=== PATIENT | male | born 1950 | race Caucasian/White ===

== ENCOUNTER 2021-10-06 08:32 | Outpatient (CLI) | payer MEDICARE, BC, SELFPAY ==
[2021-10-06 14:12] LABS: Chloride* 105 mmol/L (96-114)
[2021-10-06 14:13] LABS: Potassium* 4.6 mmol/L (3.6-5.1); Sodium* 137 mmol/L (135-149)
[2021-10-06 14:15] LABS: Carbon Dioxide* 23 mmol/L (20-32); Cholesterol* 154 mg/dL (90-199); Creatinine* 0.8 mg/dL (0.5-1.5); Estimated Glomerular Filt Rate 95 ml/min
[2021-10-06 14:16] LABS: Blood Urea Nitrogen* 20 mg/dL (7-30); Calcium* 10.3 mg/dL (8.4-10.6); Glucose* 92 mg/dL (60-115); HDL Cholesterol* 48 mg/dL (>=40); LDL Cholesterol Calculated 79 mg/dL (<100); Triglycerides* 136 mg/dL (40-149)
== END 2021-10-06 08:33 | disposition home or self-care (01) ==
PROVIDERS: PCP Family Medicine; Visit Provider Family Medicine
DX: Z00.00 Encounter for general adult medical examination without abnormal findings (principal); I10 Essential (primary) hypertension; E78.5 Hyperlipidemia, unspecified; Z13.0 Encounter for screening for diseases of the blood and blood-forming organs and certain disorders involving the immune mechanism
CPT/HCPCS: 80048; 80061

== ENCOUNTER 2022-11-14 09:53 | Outpatient (CLI) | payer MEDICARE, BC, SELFPAY | END 2022-11-14 09:54 | disposition home or self-care (01) | PROVIDERS: PCP Family Medicine; Visit Provider Family Medicine | DX: Z00.00 Encounter for general adult medical examination without abnormal findings (principal); I10 Essential (primary) hypertension; E78.5 Hyperlipidemia, unspecified | CPT/HCPCS: 80053; 80061 ==

== ENCOUNTER 2023-09-14 12:23 | Outpatient (CLI) | payer BC, MEDICARE, SELFPAY | END 2023-09-14 12:24 | disposition home or self-care (01) | LOC: CT 12:26 | PROVIDERS: Visit Provider Orthopaedic Surgery Sports Medicine | DX: M19.011 Primary osteoarthritis, right shoulder (principal); M75.121 Complete rotator cuff tear or rupture of right shoulder, not specified as traumatic | CPT/HCPCS: 73200 ==

== ENCOUNTER 2023-10-19 09:09 | Day surgery (SDC) | payer BC, MEDICARE, SELFPAY ==
[2023-10-19] VITALS (22 sets, daily range): BP systolic 109–146; BP diastolic 62–79; PULSE 70–103; RESP 14–18; TEMP 35.9–36.4; O2SAT 93–99; BMI 34.9
[2023-10-19] MEDS: ACETAMINOPHEN 500 MG TABLET 1000 MG PO ×3 (10:03→23:20)
[2023-10-19] MEDS: CELECOXIB 200 MG CAPSULE PO (10:03)
[2023-10-19] MEDS: SODIUM CHLORIDE 0.9 % (FLUSH) 10 ML SYRINGE IVF (10:04)
[2023-10-19] MEDS: LACTATED RINGERS 1000 ML 1,000 ML 100 ML IV ×2 (10:04→14:18)
[2023-10-19] MEDS: OXYCODONE (CR) 10 MG TAB.ER.12H PO (10:04)
[2023-10-19] MEDS: MIDAZOLAM HCL 1 MG/ML inj IVP (11:30)
[2023-10-19] MEDS: fentaNYL 100 MCG/2 ML inj IVP (11:30)
--- NOTE | 2023-10-19 11:35 | P.NB_ITS ---
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 Images saved: Yes Medications given in 5ml increments after negative aspiration: Ropivicaine %: 0.5 mL: 20 Needle gauge: 22 Decadron (mg): 10 Precedex (mcg): 25 Patient tolerated procedure well: Yes Block Charges Block Charge (with Pro Fee): Brachial Plexus Use of Ultrasound Machine for Block: Yes- US Guidance/pain block
--- NOTE | 2023-10-19 11:35 | SUR.PREOP ---
TIME?OUT:?1130 PT/RN/MDA?VERIFICATION?OF?SURGICAL?SITE Right Shoulder,?PROCEDURE Nerve Block,?AND?CONSENT OBTAINED?PRIOR?TO?INVASIVE?PROCEDURE.
--- NOTE | 2023-10-19 11:36 | W.ANESCHARGE ---
Anesthesia Charges Start Date/Time Anesthesia Start Date: 10/19/23 Anesthesia Start Time: 12:12 Stop Date/Time Anesthesia Stop Date: 10/19/23 Anesthesia Stop Time: 15:13 Summary Extremes of Age - Over 70 or under 1: MDA
--- NOTE | 2023-10-19 14:25 | CRLHL7_ITS ---
For Patients: As a result of the Cures Act, medical imaging exams and procedure reports are released immediately into your electronic medical record. You may view this report before your referring provider. If you have questions, please contact your health care provider. Indication: Postop Technique: Two views right shoulder Findings/Impression: Hardware from a right reverse total shoulder arthroplasty is in satisfactory position. Bone alignment is normal. No sign of acute fracture. Postop changes are within normal limits. Dictated by Flip Carrero MD @ 10/20/2023 2:41:58 PM (Electronically Signed)
--- NOTE | 2023-10-19 14:35 | PM.ORPRC ---
Procedure Note Date of procedure: 10/19/23 Procedure: PREOPERATIVE DIAGNOSIS: Right shoulder rotator cuff tear arthropathy POSTOPERATIVE DIAGNOSIS: Right shoulder rotator cuff tear arthropathy NAME OF OPERATION: Right upper extremity reverse shoulder arthroplasty, biceps tenodesis SURGEON: Ruddy Jeffery MD CONTROL OFFICER MANAGER: Stanley Ordoñez PA-C, KAPIL Dobbs ANESTHESIA: General endotracheal ESTIMATED BLOOD LOSS: 100 mL COMPLICATIONS: None SPECIMENS: None DRAINS: None PREOPERATIVE ANTIBIOTICS: Ancef 2 grams IMPLANTS: 1. Tornier 29 mm x 40 mm baseplate 2. 39 mm standard glenosphere 3. 7B humeral stem 4. High eccentric +0 humeral tray 5. 39 mm +6 polyethylene INDICATIONS: The patient is a 73-year-old with a longstanding history of severe, unrelenting right shoulder pain secondary to rotator cuff tear arthropathy. Despite appropriate nonoperative management, including activity modification, anti-inflammatories, [id number] pain medication, physical therapy, and injections they continue to have pain and disability. Operative intervention was offered. The risks, benefits and expected outcomes were discussed in detail. These included but were not limited to: Infection, bleeding, injury to blood vessel or nerve, venous thromboembolism. All questions were answered to their satisfaction. Use of an assistant sales director was necessary throughout the case for patient positioning and safety, soft tissue retraction, and closure. PROCEDURE: General anesthesia was administered. The patient was placed in the lazy beach chair position on the operating room table. The right upper extremity was prepped and draped in the usual sterile fashion. A standard deltopectoral incision was made. Subcutaneous dissection was taken with electrocautery to the deltopectoral interval. The cephalic vein was mobilized, lateral branches were cauterized. The vein was taken medially with the pectoralis. We bluntly entered the deltopectoral interval. We freed up the deltoid. The upper 1/3 of the insertion of the pectoralis was divided with cautery. The static retractor was placed. The clavipectoral fascia and CA ligament were divided. The cephalic vein was ligated. The circumflex vessels were controlled with electrocautery. The biceps was dissected out of the bicipital groove, was tagged with a #2 FiberWire suture and divided proximally. Two fiberWire sutures were placed in the subscapularis. The subscap was subperiosteally elevated off of the lesser tuberosity. The humeral head was delivered into the wound. The intramedullary humeral cutting guide was placed. We made the cut at the anatomic neck, in 30? of retroversion. Humeral sounds were used to assess the diameter of the canal. The broach was placed and had good rotational stability. The calcar reamer was used and the protective base plate cover was placed. Attention was then turned to the glenoid. Hohmann retractors were placed posteriorly. The labrum and biceps stump were sharply debrided. The origin of the inferior glenohumeral ligaments were subperiosteally released off of the glenoid. The drill guide was placed. The guide pin was placed in 0? of cephalic tilt. The reamer was used to bleeding bone. The central drill was used x2. The tap was used. The standard base plate was placed. This had excellent purchase. Locking screws x 2 were placed. The glenosphere was placed, the set screw was tightened. Attention then returned to the humerus. We placed a high eccentric standard base plate and standard poly. We reduced the shoulder and took it through a range of motion. It was found to be stable with appropriate soft tissue tension. Trial humeral components were removed. The biceps was tenodesed in the bicipital groove with drill holes and our previously placed FiberWire suture. We placed #2 FiberWire sutures in the lesser tuberosity for subsequent subscap repair. We assembled the humeral component on the back table. We placed it in the center of our subscapularis repair sutures and tapped it down to our humeral cut. This had excellent purchase. The shoulder was reduced and again was found to be stable with appropriate soft tissue tension. We did a 3 min dilute Betadine solution soak. We irrigated the wound with 3 L of normal saline via pulse lavage. We repaired the subscapularis to the lesser tuberosity with our previously placed FiberWire sutures. The deltopectoral interval was loosely reapproximated with an 0 Vicryl in an interrupted [id number] fashion. Subcutaneous tissues were closed with the 2-0 Vicryl and a running 3-0 Monocryl suture. The skin was sealed with glue. A dry dressing and sling were applied. Sponge and needle counts were correct x2. The patient tolerated the procedure well, there were no apparent complications. They were awakened and extubated in the operating room, taken to the postanesthesia care unit in satisfactory condition. PLAN: The patient will be mobilized with physical therapy. The sling will be used for 6 weeks postoperatively. Active range of motion in forward flexion and abduction as tolerates. No external rotation greater than 0? for 6 weeks postoperatively. They will be discharged to home once medically appropriate.
--- NOTE | 2023-10-19 15:18 | P.ANES_ITS ---
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
--- NOTE | 2023-10-19 15:29 | P.IMCN_ITS ---
Date of Consult Patient: [facility] Patient Consult date: 10/19/23 Requesting Physician: Orthopedics Primary Care Provider: David Ugalde MD Consult Narrative Reason for consult: Medical management Narrative: David Hawkins is a 73 year old male past medical history significant for osteoarthritis right shoulder, hypertension, hyperlipidemia, cholangiocarcinoma status post surgical resection and completion of adjuvant chemotherapy, is POD#0 s/p Right upper extremity reverse shoulder arthroplasty, biceps tenodesis, Dr. Jeffery. Postoperatively, patient reports pain is well managed. Denies headache or dizziness. No nausea. Tolerating orals without vomiting. There have been no perioperative complications or nursing concerns reported. Estimated total blood loss documented as 100 ml. Updated and reviewed the active medical problems, past medical history, past surgical history, social history, allergies and medications in our electronic EMR. Review of Systems Narrative: REVIEW OF SYSTEMS: Complete review of systems performed and negative unless otherwise stated in HPI or below. PFSH PFSH Medical History (Updated 10/19/23 @ 16:52 by eKely Mendenhall PA-C) Edema ?R60.9 - Edema, unspecified (ICD-10) Hypomagnesemia ?E83.42 - Hypomagnesemia (ICD-10) Hypophosphatemia ?E83.39 - Other disorders of phosphorus metabolism (ICD-10) Cholangiocarcinoma ?C22.1 - Intrahepatic bile duct carcinoma (ICD-10) Hypertension (05/29/09) ?I10 - Essential (primary) hypertension (ICD-10) Surgical History Hx of resection of liver ?Z90.49 - Acquired absence of other specified parts of digestive tract (ICD- 10) Hx of cholecystectomy ?Z90.49 - Acquired absence of other specified parts of digestive tract (ICD- 10) 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) ?Z96.652 - Presence of left artificial knee joint (ICD-10) Status post vasectomy ?Z98.52 - Vasectomy status (ICD-10) Status post total replacement of hip ?Z96.649 - Presence of unspecified artificial hip joint (ICD-10) Status post laparoscopic appendectomy ?Z90.49 - Acquired absence of other specified parts of digestive tract (ICD- 10) History of surgical removal of pilonidal cyst ?Z98.890 - Other specified postprocedural states (ICD-10) Family History Father High blood pressure Cancer Brother High blood pressure Coronary artery disease Sister High blood pressure Paternal Grandmother Diabetes Social History Narrative: girlfriend-Gisela Garcia former smoker-07/2022 What is your current living situation?: I presently have a place to live Problems where you live: no known problems Problems where you live details: NA In the past 12 months, utilities in danger of being shut off: no In past 12 months, lack of transportation kept you from medical appts, meetings, work, or getting things needed for daily living: no In the past 12 mos, have been you worried that your food would run out before you had money to buy more?: never true In the past 12 mos, the food you bought just didn't last and you didn't have money to buy more?: never true Smoking Status: Former smoker What tobacco products do you use: cigarettes Smoking quit date/years: <= 15 years ago Do you use any of these nicotine containing products: None Second hand tobacco smoke exposure: No How often do you have a drink containing alcohol: monthly or less How many standard drinks containing alcohol do you have on a typical day: 1 or 2 How often do you have six or more drinks on one occasion: Never AUDIT-C Alcohol total score: 1 Non-prescribed substance use: denies use Caffeine: No How often does anyone, including family, friends and others, physically hurt you : never How often does anyone, including family, friends and others, insult or talk down to you: never How often does anyone, including family, friends and others, threaten you with harm: never How often does anyone, including family, friends and others, scream or curse at you: never Little interest or pleasure in doing things: not at all Feeling down, depressed, or hopeless: not at all service: No Meds Home Medications and Allergies Home Medications ?Medication ?Instructions ?Recorded ?Confirmed ?Type acetaminophen 500 mg tablet 1,000 mg PO BID-QID PRN 10/06/21 10/17/23 History multivitamin 1 tab PO DAILY 10/06/21 10/19/23 History spironolactone 25 mg tablet 25 mg PO DAILY 04/07/23 10/19/23 History meloxicam 15 mg tablet 15 mg PO QDAY 10/06/23 10/19/23 History Allergies Allergy/AdvReac Type Severity Reaction Status Date / Time No Known Allergies Allergy Verified 10/19/23 09:17 Exam Narrative: Exam Narrative: PHYSICAL EXAM General: Pleasant, conversant, NAD HEENT: Normocephalic, atraumatic, sclera white, EOMI, oral mucosa moist Cardiovascular: RRR, S1S2. No pitting edema Pulmonary: CTA bilaterally without rhonchi, rales, expiratory wheezes. No dyspnea Abdominal: Soft, nondistended, NTTP Neurological: Alert, answering questions appropriately, cranial nerves intact, no focal findings Extremities: No gross joint deformity or swelling. Postoperative dressing in place, dry. Shoulder immobilizer in place. Neurovascularly intact Skin: Warm, dry. Const: Vital Signs, click to edit/add: Vital Signs - 24 hr 10/19/23 09:26 10/19/23 11:30 10/19/23 11:35 Temperature 97.4 F L Pulse Rate 76 73 72 Respiratory Rate 16 16 16 Blood Pressure 141/77 H 146/74 H 142/68 H Pulse Oximetry 96 98 98 Oxygen Delivery Me thod Room Air Nasal Cannula Nasal Cannula Oxygen Flow Rate 2 2 10/19/23 11:40 Temperature Pulse Rate 70 Respiratory Rate 16 Blood Pressure 125/70 Pulse Oximetry 98 Oxygen Delivery Me thod Nasal Cannula Oxygen Flow Rate 2 Assessment and Plan Assessment and plan (1) Osteoarthritis of right shoulder: Problem comment: -POD#0 s/p Right upper extremity reverse shoulder arthroplasty, biceps tenodesis -perioperative management including pain management and anticoagulation per Orthopedic surgery -encourage postoperative pulmonary hygiene -PT OT consults -plan to discharge home with family tomorrow Status: Chronic (2) Hypertension: Problem comment: Stable post op, currently not on any prescription medications Status: Chronic (3) Edema: Problem comment: Patient reports taking spironolactone every other day or as needed. Advised taking a dose tomorrow given amount of volume he received preoperatively Status: Chronic Plan Hospital medicine team will sign off. Please contact our service with any questions or concerns. Total Time Spent Total Time Spent: Total time spent caring for the patient today was 45 minutes. This includes time spent for the visit reviewing the chart, time spent during the visit, time spent after the visit and documentation and planning in coordination of care.
--- NOTE | 2023-10-19 15:52 | SUR.PHASEI ---
patient meets pacu d/c criteria
[2023-10-19] MEDS: CEFAZOLIN 2 GM in 0.9 % SODIUM CHLORIDE Mini-bag 100 ML IVPB (18:10)
--- NOTE | 2023-10-19 18:43 | PC.NURSE ---
Pt arrived from surgery at 1551. Pt had complaints of pain rated at a 3 but does not want any medication at this time. Ice pack in place. Pt?s dressing is dry and intact. Pt advanced to regular diet and tolerating well. No complaints of nausea. ?
[2023-10-19] MEDS: SENNOSIDES 1 TAB TABLET 2 TAB PO (21:25)
[2023-10-20 03:00] VITALS: BP 121/67; PULSE 102; RESP 16; TEMP 36.4; O2SAT 94
[2023-10-20] MEDS: CEFAZOLIN 2 GM in 0.9 % SODIUM CHLORIDE Mini-bag 100 ML IVPB (03:04)
[2023-10-20] MEDS: ACETAMINOPHEN 500 MG TABLET 1000 MG PO (05:47)
--- NOTE | 2023-10-20 06:39 | PC.NURSE ---
End of shift report [id number]: Pleasant and cooperative with cares. Denies any pain this shift. Numbness and tingling to right upper extremity resolved, CMS intact and patient able to move fingers well. Sling utilized to RUE. Dressing to anterior shoulder clean, dry and intact. Patient ambulatory with cane, patient ambulated throughout hallways during shift. Patient reporting tingling and numbness to LLE, he describes it as his leg feeling asleep. Once patient is up and moving the numbness resolves until he sits or lays down for a period of time. Tolerating food and fluids well, denies any nausea or vomiting.
[2023-10-20 06:46] LABS: Hematocrit 34.5 % (37.0-53.0); Hemoglobin* 11.7 gm/dL (13.5-17.5); Mean Corpuscular HGB Conc 34 gm/dL (32-36); Mean Corpuscular Hemoglobin 32 pg (26-34); Mean Corpuscular Volume 93 fL (80-100); Platelet Count* 88 K/uL (140-440); Red Blood Count 3.72 m/uL (4.30-5.90); White Blood Count* 9.97 K/uL (4.50-11.00)
[2023-10-20 06:50] LABS: Slide Review Reflex No
[2023-10-20 07:13] LABS: Potassium* 4.6 mmol/L (3.6-5.1); Sodium* 135 mmol/L (135-149)
[2023-10-20 07:16] LABS: Creatinine* 0.7 mg/dL (0.5-1.5); Est. Creatinine Clearance* 63.65; Estimated Glomerular Filt Rate 97 ml/min
[2023-10-20 07:17] LABS: Blood Urea Nitrogen* 16 mg/dL (7-30)
--- NOTE | 2023-10-20 07:36 | PM.ORPN ---
Subjective Subjective Time Seen by Provider: 06:50 Date Seen: 10/20/23 Principal diagnosis: Day 1 s/p reverse shoulder arthroplasty Interval history: Yoni is doing well and resting comfortably in his recliner. No acute concerns. Reports he has no pain. Overnight, his pain was well managed with Tylenol and icing only. Denies: chest pain, SOB, fever, chills, nausea and vomiting. Tingling distally within right upper extremity is improving. Denies bowel movement postop, but admits to flatulence. Sleeping well. Patient's , Gisela, will be in later this morning and will be assisting Yoni at home. Ortho Exam Narrative Exam Narrative: Incision/Dressing: Dressing appears clean and dry. No drainage present. Mepilex intact. Right shoulder appears moderately swollen but supple with no obvious erythema, fluctuance or excessive warmth. Ice is being utilized as needed. CMS: Intact distally with 2+ Radial pulse. Decreased sensation over deltoid. Sensation confirmed distally. Calf: Bilateral calves are supple, with no swelling, pain, tenderness, erythema, discoloration or coolness to the touch. Constitutional: Patient is alert and oriented x3. Patient is in no acute distress and converses without labored breathing. Patient is able to make decisions and demonstrates good insight. Patient is pleasant and cooperative. Affect is full range and appropriate for the circumstances. Other: Patient is utilizing active ice and wearing his sling during this visit. Const Vital Signs, click to edit/add: Vital Signs - 24 hr 10/19/23 09:26 10/19/23 11:30 10/19/23 11:35 Temperature 97.4 F L Pulse Rate 76 73 72 Pulse Rate [Pulse Oximeter] Respiratory Rate 16 16 16 Blood Pressure 141/77 H 146/74 H 142/68 H Blood Pressure [Left Arm] Pulse Oximetry 96 98 98 Oxygen Delivery Method Room Air Nasal Cannula Nasal Cannula Oxygen Flow Rate 2 2 10/19/23 11:40 10/19/23 15:10 10/19/23 15:15 Temperature 96.8 F L Pulse Rate 70 78 77 Pulse Rate [Pulse Oximeter] Respiratory Rate 16 18 16 Blood Pressure 125/70 139/65 136/64 Blood Pressure [Left Arm] Pulse Oximetry 98 94 95 Oxygen Delivery Method Nasal Cannula Nasal Cannula Oxygen Flow Rate 2 2 10/19/23 15:20 10/19/23 15:25 10/19/23 15:30 Temperature Pulse Rate 77 75 75 Pulse Rate [Pulse Oximeter] Respiratory Rate 14 16 15 Blood Pressure 146/71 H 144/67 H 123/65 Blood Pressure [Left Arm] Pulse Oximetry 96 93 94 Oxygen Delivery Method Room Air Oxygen Flow Rate 10/19/23 15:37 10/19/23 15:51 10/19/23 16:00 Temperature 97.1 F L 96.9 F L 96.9 F L Pulse Rate 79 78 78 Pulse Rate [Pulse Oximeter] Respiratory Rate 16 14 14 Blood Pressure 128/68 127/63 123/69 Blood Pressure [Left Arm] Pulse Oximetry 94 96 95 Oxygen Delivery Method Room Air Room Air Oxygen Flow Rate 0 0 10/19/23 16:15 10/19/23 16:30 10/19/23 16:45 Temperature 96.7 F L 96.7 F L 96.8 F L Pulse Rate 78 79 80 Pulse Rate [Pulse Oximeter] Respiratory Rate 16 16 16 Blood Pressure 116/65 128/73 130/79 Blood Pressure [Left Arm] Pulse Oximetry 96 96 98 Oxygen Delivery Method Room Air Room Air Room Air Oxygen Flow Rate 0 0 0 10/19/23 17:30 10/19/23 18:00 10/19/23 19:00 Temperature 96.8 F L 97.5 F L 97.6 F Pulse Rate 80 80 100 Pulse Rate [Pulse Oximeter] Respiratory Rate 16 16 16 Blood Pressure 143/76 H 115/62 135/71 Blood Pressure [Left Arm] Pulse Oximetry 99 98 96 Oxygen Delivery Method Room Air Room Air Room Air Oxygen Flow Rate 0 0 0 10/19/23 20:00 10/19/23 21:00 10/19/23 22:00 Temperature 97.1 F L 97.2 F L 97.2 F L Pulse Rate 103 H 88 102 H Pulse Rate [Pulse Oximeter] Respiratory Rate 16 18 16 Blood Pressure 139/76 130/75 109/71 Blood Pressure [Left Arm] Pulse Oximetry 95 96 95 Oxygen Delivery Method Room Air Room Air Room Air Oxygen Flow Rate 0 0 0 10/19/23 23:00 10/19/23 23:00 10/20/23 03:00 Temperature 97.5 F L Pulse Rate Pulse Rate [Pulse Oximeter] 102 H Respiratory Rate 16 16 16 Blood Pressure Blood Pressure [Left Arm] 121/67 Pulse Oximetry 95 94 Oxygen Delivery Method Room Air Room Air Oxygen Flow Rate 0 Assessment and Plan Assessment and plan (1) Status post reverse arthroplasty of right shoulder: Problem details: DOS: 10/19/23; Dr. Jeffery Status: Acute Assessment and Plan: Sling use x 6 weeks postoperative. May remove to work on elbow/hand/wrist ROM. No external rotation of the right shoulder past 0? x 6 weeks. Forward flexion and abduction of the right shoulder is allowed as tolerated. For pain management, Oxycodone and acetaminophen PRN in addition to frequent icing. Minimize use of narcotics. Patient wishes to drive during the day and does not intend to take oxycodone. I still sent him in a script just in case it is needed in the middle of the night. Dressing is waterproof. May shower. Surgical glue covers the wound. Follow-up appointment scheduled for 10/26 with Stanley Ordoñez PA-C. I encouraged Yoni to start a list of questions and bring it to this appointment. Follow-up with Dr. Jeffery at 6 weeks postoperative. Phone Orthopedics with any questions or concerns.
[2023-10-20 08:14] VITALS: BP 116/64; PULSE 90; RESP 12; TEMP 36.6; O2SAT 97
[2023-10-20] MEDS: SENNOSIDES 1 TAB TABLET 2 TAB PO (08:43)
[2023-10-20] MEDS: SPIRONOLACTONE 25 MG TABLET PO (08:44)
--- NOTE | 2023-10-20 10:42 | PC.NURSE ---
Discharge: Patient pleasant and cooperative. Patient vitally stable, lungs clear, BS WNL, IV removed, catheter intact. Patient independent in room and denies pain. Right shoulder dressing C/D/I, with non pitting edema. Sling in use and active ice used on the surgical site. Patient up in chair all shift, urinating well, and tolerating regular diet. Patient signed belongings sheet and discharge form. Patient's questions regarding education, answered. Patient left the floor by foot to home at 1039.
== END 2023-10-20 10:39 | disposition home or self-care (01) ==
LOC: OR 09:10 → MEDSURG 09:12
PROVIDERS: PCP Family Medicine; Visit Provider Orthopaedic Surgery
PROC: 0RRJ0JZ Replacement of Right Shoulder Joint with Synthetic Substitute, Open Approach (ICD-10-PCS; CPT 23472; principal; 2023-10-19 11:30)
DX: M75.101 Unspecified rotator cuff tear or rupture of right shoulder, not specified as traumatic (principal); M19.011 Primary osteoarthritis, right shoulder; G89.18 Other acute postprocedural pain; R60.9 Edema, unspecified; I10 Essential (primary) hypertension; E78.5 Hyperlipidemia, unspecified; Z85.09 Personal history of malignant neoplasm of other digestive organs
CPT/HCPCS: 23472; 23430; 01638; 36415; 64415; 73030; 76942; 82565; 84132; 84295; 84520; 85027; 97110; 97165; 97535; 99100; A9270; C1713; C1776; J0330; J0690; J1100; J2250; J2405; J2704; J2795; J3010; J3490; J7120; L3670

== ENCOUNTER 2024-01-11 09:00 | Outpatient (RCR) | payer BC, MEDICARE, SELFPAY ==
--- NOTE | 2023-10-11 16:13 | OT.OPOE ---
OT Outpatient Ortho Eval OT Outpatient Ortho Eval* Start: 10/11/23 08:56 Freq: Status: Active Protocol: Document 10/10/23 19:00 SMW (Rec: 10/11/23 09:07 SMW [id number]) E-signed By Merry Bacon OT OT OP Ortho Eval Details Complexity Complexity Low Insurance Information Insurance Information Blue Cross/Blue Shield, Medicare B Outpatient History/Precautions Current Condition/Medical Diagnosis Referring Provider Dr. Jeffery Medical Diagnoses RTSA Treatment Diagnosis primary osteoarthritis, right shoulder Medical/Functional History Medical History Reviewed Yes Prior Level of Function/Mobility Patient lives alone. Has fiance that he will be staying with post surgery. 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 Pain Assessment Pain Pain Yes Pain Comments right shoulder Assessment Assessment Assessment The patient is a pleasant 73 year old referred to outpatient OT for a pre-op for a future reverse RTSA. The patient does live alone, however he will be staying post surgery at his fiance's home. Fiance present for session. Both were educated on post op exercises, sling management, one handed ADL techniques, positioning and icing. The patient asked appropriate questions and all questions answered accordingly . Occupational Therapy Treatment Plan - OP Goals Goals Within one session, the patient will.. 1. verbalize understanding of one handed ADL techniques, sling management, post op exercises and positioning. goal met. Treatment Plan Treatment Plan Evaluation Certification Certification Statement I Certify That: Therapy Services Provided, Therapy Plan Established, Therapy Plan Reviewed Certification Information Clinic ID # [id number] Initial Certification Date 10/10/23 Provider Signature Required Yes Provider Signature Shows Agreement With POC & Medical Necessity Physician NPI Number Write NPI# Here Physician Comment/Change Comment or Changes Physician Signature & Date Requested Please Sign/Date Here
== END 2024-01-23 11:57 | disposition home or self-care (01) ==
PROVIDERS: Visit Provider Orthopaedic Surgery
DX: M19.011 Primary osteoarthritis, right shoulder (principal); M75.121 Complete rotator cuff tear or rupture of right shoulder, not specified as traumatic; Z96.611 Presence of right artificial shoulder joint; Z51.89 Encounter for other specified aftercare
CPT/HCPCS: 97110; 97140; 97161; 97165